=== PATIENT | female | born 1960 | race Caucasian/White ===

== ENCOUNTER 2023-09-16 10:51 | Emergency (ER) | payer MEDICARE, SELFPAY ==
[2023-09-16] VITALS (97 sets, daily range): BP systolic 80–151; BP diastolic 44–98; PULSE 99–130; RESP 18–39; TEMP 36.4–37.5; O2SAT 85–98; BMI 41.7
--- NOTE | 2023-09-16 10:55 | DI.RAD.S_ITS ---
PROCEDURE: XR CHEST 1V INDICATIONS: Shortness of breath TECHNIQUE: One view of the chest was acquired. COMPARISON: None. FINDINGS: There is rotation. Surgical changes and devices: None. Lungs and pleura: Bilateral pulmonary infiltrate sand lower lobe consolidation suspicious for pneumonia. Small right pleural effusion with right basilar atelectasis. No pneumothorax. Mediastinum: Mediastinal contours appear normal. Heart size is moderately enlarged. Bones and chest wall: No suspicious bony lesions. Overlying soft tissues appear unremarkable. IMPRESSION: 1. Suspect bilateral pneumonia. 2. Moderate cardiomegaly. Dictated by: Deshawn Rodriguez M.D. on 09/16/2023 at 11:32 Approved by: Deshawn Rodriguez M.D. on 09/16/2023 at 11:33
--- NOTE | 2023-09-16 11:14 | ED.GENADULT ---
HPI - General Adult <Mic Ray DO - Last Filed: 09/19/23 17:59> General Chief complaint: Shortness of Breath/Dyspnea Stated complaint: SOB/ sick T-7 Time Seen by Provider: 09/16/23 10:54 Source: patient and family Mode of arrival: Wheelchair History of Present Illness HPI narrative: Patient is a 63-year-old female. No diagnosed medical problems. Takes no medications. Does not have a primary care doctor who is here with family for evaluation of shortness of breath. Patient and family report that several weeks ago she developed a respiratory illness. Does not seem to have improved since then. Today patient's family stated that they saw her without socks and noticed that her toes were blue and that her feet were swollen. Patient does report shortness of breath. She denies chest pain. Does have a cough. No fevers. No abdominal pain. Has not tried anything for the symptoms prior to arrival. Related Data Allergies Allergy/AdvReac Type Severity Reaction Status Date / Time No Known Drug Allergies Allergy Verified 09/16/23 11:07 Review of Systems <DO Rachell Romero Last Filed: 09/19/23 17:59> Review of Systems ROS Unobtainable: All systems reviewed & are unremarkable except as noted in HPI and below Patient History <DO Racehll Romero Last Filed: 09/19/23 17:59> Social History Smoking Status: Former smoker Tobacco: How many years used: 30 Smoking Status: Never smoker alcohol intake frequency: other Substance Use Type: does not use Exam <DO Rachell Romero Last Filed: 09/19/23 17:59> Initial Vital Signs Initial Vital Signs: Vital Signs Temperature 97.5 F L 09/16/23 11:07 Pulse Rate 124 H 09/16/23 11:07 Respiratory Rate 18 09/16/23 11:07 Blood Pressure 129/79 09/16/23 11:07 Pulse Oximetry 95 09/16/23 11:07 Oxygen Delivery Method Room Air 09/16/23 11:07 Const General: cooperative and ill appearing [facility] Head: normal to inspection and normocephalic Resp Effort & Inspection: cough, no respiratory distress and tachypneic Auscultation: rhonchi and wheezes Cardio Rate: tachycardic Rhythm: regular rhythm GI Inspection: normal to inspection and non-distended Skin Other: Patient with multiple wounds on lower extremities. Is weeping. No erythema. Patient does have discolored bilateral toes. Somewhat cool to the touch. Neuro General: patient alert, patient awake and patient oriented x3 Extrem General: edema <Uriel Fowler MD - Last Filed: 09/17/23 07:12> Initial Vital Signs Initial Vital Signs: Vital Signs Temperature 97.5 F L 09/16/23 11:07 Pulse Rate 124 H 09/16/23 11:07 Respiratory Rate 18 09/16/23 11:07 Blood Pressure 129/79 09/16/23 11:07 Pulse Oximetry 95 09/16/23 11:07 Oxygen Delivery Method Room Air 09/16/23 11:07 Course <Mic Ray DO - Last Filed: 09/19/23 17:59> Orders Ordered: Discontinued Medications Aspirin (Aspirin 81 Mg Chew Tab) 324 mg PO NOW ONE Stop: 09/16/23 11:52 Last Admin: 09/16/23 12:10 Dose: 324 mg Documented By: SUNITHA Furosemide (Furosemide 40 Mg/4 Ml Vial) 40 mg IV NOW ONE Stop: 09/16/23 11:17 Last Admin: 09/16/23 11:24 Dose: 40 mg Documented By: JAMARI Furosemide (Furosemide 40 Mg/4 Ml Vial) 40 mg IV NOW ONE Stop: 09/16/23 13:43 Last Admin: 09/16/23 13:46 Dose: 40 mg Documented By: JAMARI Ceftriaxone Sodium 1,000 mg/ (Sodium Chloride) 100 mls @ 200 mls/hr IV NOW ONE Stop: 09/16/23 11:43 Last Infusion: 09/16/23 12:55 Dose: Infused Documented By: Admin: 09/16/23 12:10 Dose: 200 mls/hr Documented By: SUNITHA Azithromycin 500 mg/ Dextrose 250 mls @ 250 mls/hr IV NOW ONE Stop: 09/16/23 11:52 Last Infusion: 09/16/23 14:02 Dose: Infused Documented By: Admin: 09/16/23 12:56 Dose: 250 mls/hr Documented By: JAMARI Sodium Chloride (Normal Saline 0.9%) 1,000 mls @ 100 mls/hr IV CONT KENYA Last Infusion: 09/16/23 23:18 Dose: 0 mls/hr Documented By: Infusion: 09/16/23 23:14 Dose: 0 mls/hr Documented By: Admin: 09/16/23 14:48 Dose: 100 mls/hr Documented By: JAMARI Sodium Chloride (Normal Saline 0.9%) 500 mls @ 500 mls/hr IV BOLUS ONE Stop: 09/16/23 14:51 Last Infusion: 09/16/23 15:06 Dose: Infused Documented By: Admin: 09/16/23 14:02 Dose: 500 mls/hr Documented By: JAMARI NOREPINEPHRINE BITARTRATE/D5W (Levophed) 4 mg in 250 mls @ 38.782 mls/hr IV TITRATE KENYA; Protocol Last Admin: 09/16/23 23:17 Dose: Not Given Documented By: Vital Signs Vital signs: Vital Signs - 8 hr 09/16/23 13:00 09/16/23 13:00 09/16/23 13:15 Temperature Pulse Rate 123 H 119 H Respiratory Rate 30 H 31 H Blood Pressure 145/63 H Pulse Oximetry 92 94 Oxygen Delivery Method Oxygen Flow Rate 09/16/23 13:15 09/16/23 13:30 09/16/23 13:31 Temperature Pulse Rate 120 H 113 H Respiratory Rate 27 H 39 H Blood Pressure 122/56 L Pulse Oximetry 93 94 Oxygen Delivery Method Oxygen Flow Rate 09/16/23 13:31 09/16/23 13:45 09/16/23 13:45 Temperature Pulse Rate 111 H Respiratory Rate 34 H Blood Pressure 107/58 L 92/51 L Pulse Oximetry 94 Oxygen Delivery Method Nasal Cannula Oxygen Flow Rate 2 09/16/23 13:49 09/16/23 13:49 09/16/23 14:00 Temperature Pulse Rate 113 H 110 H Respiratory Rate 27 H 29 H Blood Pressure 104/59 L Pulse Oximetry 93 93 Oxygen Delivery Method Oxygen Flow Rate 09/16/23 14:00 09/16/23 14:07 09/16/23 14:15 Temperature 99.5 F Pulse Rate 114 H 111 H Respiratory Rate 27 H Blood Pressure 92/54 L Pulse Oximetry 95 Oxygen Delivery Method Oxygen Flow Rate 09/16/23 14:15 09/16/23 14:20 09/16/23 14:25 Temperature Pulse Rate 107 H 105 H Respiratory Rate 27 H 27 H Blood Pressure 90/55 L Pulse Oximetry 96 95 Oxygen Delivery Method Nasal Cannula Oxygen Flow Rate 2 09/16/23 14:30 09/16/23 14:30 09/16/23 14:32 Temperature Pulse Rate 111 H 107 H Respiratory Rate 26 H 28 H Blood Pressure 96/58 L Pulse Oximetry 95 94 Oxygen Delivery Method Oxygen Flow Rate 09/16/23 14:32 09/16/23 14:33 09/16/23 14:33 Temperature Pulse Rate 107 H Respiratory Rate 24 Blood Pressure 101/59 L 104/57 L Pulse Oximetry 94 Oxygen Delivery Method Oxygen Flow Rate 09/16/23 14:34 09/16/23 14:34 09/16/23 14:35 Temperature Pulse Rate 114 H 108 H Respiratory Rate 24 30 H Blood Pressure 99/56 L Pulse Oximetry 94 94 Oxygen Delivery Method Oxygen Flow Rate 09/16/23 14:40 09/16/23 14:40 09/16/23 14:45 Temperature Pulse Rate 102 H 112 H Respiratory Rate 26 H 28 H Blood Pressure 103/56 L Pulse Oximetry 96 95 Oxygen Delivery Method Oxygen Flow Rate 09/16/23 14:51 09/16/23 14:51 09/16/23 15:00 Temperature Pulse Rate 111 H 117 H Respiratory Rate 27 H 26 H Blood Pressure 108/61 Pulse Oximetry 95 95 Oxygen Delivery Method Oxygen Flow Rate 09/16/23 15:00 09/16/23 15:10 09/16/23 15:10 Temperature Pulse Rate 109 H Respiratory Rate 27 H Blood Pressure 109/62 110/59 L Pulse Oximetry 95 Oxygen Delivery Method Oxygen Flow Rate 09/16/23 15:15 09/16/23 15:20 09/16/23 15:20 Temperature Pulse Rate 115 H 122 H Respiratory Rate 31 H 29 H Blood Pressure 121/56 L Pulse Oximetry 97 96 Oxygen Delivery Method Oxygen Flow Rate 09/16/23 15:30 09/16/23 15:30 09/16/23 15:40 Temperature Pulse Rate 109 H 116 H Respiratory Rate 29 H 27 H Blood Pressure 110/61 Pulse Oximetry 96 96 Oxygen Delivery Method Oxygen Flow Rate 09/16/23 15:40 09/16/23 15:45 09/16/23 15:50 Temperature Pulse Rate 113 H 114 H Respiratory Rate 29 H 34 H Blood Pressure 110/56 L Pulse Oximetry 96 95 Oxygen Delivery Method Oxygen Flow Rate 09/16/23 15:50 09/16/23 16:00 09/16/23 16:00 Temperature Pulse Rate 116 H Respiratory Rate 24 Blood Pressure 122/85 106/57 L Pulse Oximetry 94 Oxygen Delivery Method Oxygen Flow Rate 09/16/23 16:10 09/16/23 16:10 09/16/23 16:15 Temperature Pulse Rate 116 H 107 H Respiratory Rate 29 H 31 H Blood Pressure 107/62 Pulse Oximetry 95 97 Oxygen Delivery Method Nasal Cannula Oxygen Flow Rate 2 09/16/23 16:20 09/16/23 16:20 09/16/23 16:30 Temperature Pulse Rate 115 H 99 H Respiratory Rate 24 25 H Blood Pressure 111/57 L Pulse Oximetry 97 95 Oxygen Delivery Method Oxygen Flow Rate 09/16/23 16:32 09/16/23 16:32 09/16/23 16:41 Temperature Pulse Rate 105 H 111 H Respiratory Rate 26 H 30 H Blood Pressure 108/58 L Pulse Oximetry 97 97 Oxygen Delivery Method Oxygen Flow Rate 09/16/23 16:41 09/16/23 16:45 09/16/23 16:50 Temperature Pulse Rate 105 H 116 H Respiratory Rate 30 H 24 Blood Pressure 108/72 Pulse Oximetry 96 96 Oxygen Delivery Method Oxygen Flow Rate 09/16/23 16:50 09/16/23 17:00 09/16/23 17:00 Temperature Pulse Rate 111 H Respiratory Rate 26 H Blood Pressure 116/59 L 104/55 L Pulse Oximetry 96 Oxygen Delivery Method Oxygen Flow Rate 09/16/23 17:10 09/16/23 17:10 09/16/23 17:15 Temperature Pulse Rate 113 H 117 H Respiratory Rate 27 H 24 Blood Pressure 114/54 L Pulse Oximetry 96 95 Oxygen Delivery Method Nasal Cannula Oxygen Flow Rate 7 09/16/23 17:20 09/16/23 17:20 09/16/23 17:30 Temperature Pulse Rate 105 H 119 H Respiratory Rate 26 H 25 H Blood Pressure 116/56 L Pulse Oximetry 95 96 Oxygen Delivery Method Nasal Cannula Oxygen Flow Rate 2 09/16/23 17:30 09/16/23 17:40 09/16/23 17:40 Temperature Pulse Rate 120 H Respiratory Rate 33 H Blood Pressure 113/56 L 121/57 L Pulse Oximetry 96 Oxygen Delivery Method Oxygen Flow Rate 09/16/23 17:45 02/04/24 17:51 09/16/23 17:51 Temperature Pulse Rate 110 H 122 H Respiratory Rate 29 H 29 H Blood Pressure 115/98 H Pulse Oximetry 95 93 Oxygen Delivery Method Oxygen Flow Rate 09/16/23 18:00 09/16/23 18:10 09/16/23 18:10 Temperature 98.5 F Pulse Rate 118 H 127 H Respiratory Rate 27 H 28 H Blood Pressure 128/63 Pulse Oximetry 94 94 Oxygen Delivery Method Nasal Cannula Oxygen Flow Rate 3 09/16/23 18:15 09/16/23 18:21 09/16/23 18:21 Temperature Pulse Rate 118 H 118 H Respiratory Rate 25 H 28 H Blood Pressure 113/55 L Pulse Oximetry 95 95 Oxygen Delivery Method Oxygen Flow Rate 09/16/23 18:30 09/16/23 18:30 09/16/23 18:40 Temperature Pulse Rate 125 H 130 H Respiratory Rate 25 H 29 H Blood Pressure 124/58 L Pulse Oximetry 89 L 88 L Oxygen Delivery Method Oxygen Flow Rate 09/16/23 18:40 09/16/23 18:45 09/16/23 18:50 Temperature Pulse Rate 124 H 127 H Respiratory Rate 25 H 23 Blood Pressure 112/59 L Pulse Oximetry 88 L 91 Oxygen Delivery Method Oxygen Flow Rate 09/16/23 18:50 09/16/23 19:00 09/16/23 19:00 Temperature Pulse Rate 121 H Respiratory Rate 23 Blood Pressure 119/67 125/55 L Pulse Oximetry 95 Oxygen Delivery Method Oxygen Flow Rate 09/16/23 19:10 09/16/23 19:20 09/16/23 19:30 Temperature Pulse Rate 125 H 121 H 119 H Respiratory Rate 26 H 30 H 29 H Blood Pressure Pulse Oximetry 96 97 97 Oxygen Delivery Method Nasal Cannula Oxygen Flow Rate 3 09/16/23 19:40 09/16/23 19:50 09/16/23 20:00 Temperature Pulse Rate 120 H 125 H 126 H Respiratory Rate 26 H 29 H 31 H Blood Pressure Pulse Oximetry 97 97 97 Oxygen Delivery Method Oxygen Flow Rate 09/16/23 20:10 09/16/23 20:15 09/16/23 20:15 Temperature Pulse Rate 117 H 117 H Respiratory Rate 28 H 28 H Blood Pressure 107/48 L Pulse Oximetry 95 96 Oxygen Delivery Method Oxygen Flow Rate 09/16/23 20:20 09/16/23 20:20 09/16/23 20:30 Temperature Pulse Rate 120 H Respiratory Rate 32 H Blood Pressure 99/55 L 100/67 Pulse Oximetry 98 Oxygen Delivery Method Oxygen Flow Rate 09/16/23 20:30 09/16/23 20:40 09/16/23 20:40 Temperature Pulse Rate 121 H 120 H Respiratory Rate 29 H 27 H Blood Pressure 100/65 Pulse Oximetry 97 93 Oxygen Delivery Method Oxygen Flow Rate 09/16/23 20:50 Temperature Pulse Rate 124 H Respiratory Rate 29 H Blood Pressure 90/57 L Pulse Oximetry 93 Oxygen Delivery Method Nasal Cannula Oxygen Flow Rate 3 <Uriel Fowler MD - Last Filed: 09/17/23 07:12> Orders Ordered: Discontinued Medications Aspirin (Aspirin 81 Mg Chew Tab) 324 mg PO NOW ONE Stop: 09/16/23 11:52 Last Admin: 09/16/23 12:10 Dose: 324 mg Documented By: SUNITHA Furosemide (Furosemide 40 Mg/4 Ml Vial) 40 mg IV NOW ONE Stop: 09/16/23 11:17 Last Admin: 09/16/23 11:24 Dose: 40 mg Documented By: JAMARI Furosemide (Furosemide 40 Mg/4 Ml Vial) 40 mg IV NOW ONE Stop: 09/16/23 13:43 Last Admin: 09/16/23 13:46 Dose: 40 mg Documented By: JAMARI Ceftriaxone Sodium 1,000 mg/ (Sodium Chloride) 100 mls @ 200 mls/hr IV NOW ONE Stop: 09/16/23 11:43 Last Infusion: 09/16/23 12:55 Dose: Infused Documented By: Admin: 09/16/23 12:10 Dose: 200 mls/hr Documented By: SUNITHA Azithromycin 500 mg/ Dextrose 250 mls @ 250 mls/hr IV NOW ONE Stop: 09/16/23 11:52 Last Infusion: 09/16/23 14:02 Dose: Infused Documented By: Admin: 09/16/23 12:56 Dose: 250 mls/hr Documented By: JAMARI Sodium Chloride (Normal Saline 0.9%) 1,000 mls @ 100 mls/hr IV CONT KENYA Last Infusion: 09/16/23 23:18 Dose: 0 mls/hr Documented By: Infusion: 09/16/23 23:14 Dose: 0 mls/hr Documented By: Admin: 09/16/23 14:48 Dose: 100 mls/hr Documented By: JAMARI Sodium Chloride (Normal Saline 0.9%) 500 mls @ 500 mls/hr IV BOLUS ONE Stop: 09/16/23 14:51 Last Infusion: 09/16/23 15:06 Dose: Infused Documented By: Admin: 09/16/23 14:02 Dose: 500 mls/hr Documented By: JAMARI NOREPINEPHRINE BITARTRATE/D5W (Levophed) 4 mg in 250 mls @ 38.782 mls/hr IV TITRATE KENYA; Protocol Last Admin: 09/16/23 23:17 Dose: Not Given Documented By: Reevaluation(s) Reevaluation #1: Care assumed at 6:00 p.m. shift change. At 9:00 p.m., nurses advised me that the patient was hypotensive. I reviewed her chest x-ray, EKG and laboratory data including an elevated proBNP and elevated troponins which are stable. She had transient hypotension, blood pressure is now recovering. I have ordered norepinephrine, we will not start that at this point as her blood pressure has recovered although we will keep it available for mean arterial pressure less than 65 patient was sleeping she arouses to voice. She appears to be making urine well she is oxygenating well. Has received antibiotics for possible pneumonia, we are waiting for a bed at a hospital with cardiology capabilities. Vital Signs Vital signs: Vital Signs - 8 hr 09/16/23 13:00 09/16/23 13:00 09/16/23 13:15 Temperature Pulse Rate 123 H 119 H Respiratory Rate 30 H 31 H Blood Pressure 145/63 H Pulse Oximetry 92 94 Oxygen Delivery Method Oxygen Flow Rate 09/16/23 13:15 09/16/23 13:30 09/16/23 13:31 Temperature Pulse Rate 120 H 113 H Respiratory Rate 27 H 39 H Blood Pressure 122/56 L Pulse Oximetry 93 94 Oxygen Delivery Method Oxygen Flow Rate 09/16/23 13:31 09/16/23 13:45 09/16/23 13:45 Temperature Pulse Rate 111 H Respiratory Rate 34 H Blood Pressure 107/58 L 92/51 L Pulse Oximetry 94 Oxygen Delivery Method Nasal Cannula Oxygen Flow Rate 2 09/16/23 13:49 09/16/23 13:49 09/16/23 14:00 Temperature Pulse Rate 113 H 110 H Respiratory Rate 27 H 29 H Blood Pressure 104/59 L Pulse Oximetry 93 93 Oxygen Delivery Method Oxygen Flow Rate 09/16/23 14:00 09/16/23 14:07 09/16/23 14:15 Temperature 99.5 F Pulse Rate 114 H 111 H Respiratory Rate 27 H Blood Pressure 92/54 L Pulse Oximetry 95 Oxygen Delivery Method Oxygen Flow Rate 09/16/23 14:15 09/16/23 14:20 09/16/23 14:25 Temperature Pulse Rate 107 H 105 H Respiratory Rate 27 H 27 H Blood Pressure 90/55 L Pulse Oximetry 96 95 Oxygen Delivery Method Nasal Cannula Oxygen Flow Rate 2 09/16/23 14:30 09/16/23 14:30 09/16/23 14:32 Temperature Pulse Rate 111 H 107 H Respiratory Rate 26 H 28 H Blood Pressure 96/58 L Pulse Oximetry 95 94 Oxygen Delivery Method Oxygen Flow Rate 09/16/23 14:32 09/16/23 14:33 09/16/23 14:33 Temperature Pulse Rate 107 H Respiratory Rate 24 Blood Pressure 101/59 L 104/57 L Pulse Oximetry 94 Oxygen Delivery Method Oxygen Flow Rate 09/16/23 14:34 09/16/23 14:34 09/16/23 14:35 Temperature Pulse Rate 114 H 108 H Respiratory Rate 24 30 H Blood Pressure 99/56 L Pulse Oximetry 94 94 Oxygen Delivery Method Oxygen Flow Rate 09/16/23 14:40 09/16/23 14:40 09/16/23 14:45 Temperature Pulse Rate 102 H 112 H Respiratory Rate 26 H 28 H Blood Pressure 103/56 L Pulse Oximetry 96 95 Oxygen Delivery Method Oxygen Flow Rate 09/16/23 14:51 09/16/23 14:51 09/16/23 15:00 Temperature Pulse Rate 111 H 117 H Respiratory Rate 27 H 26 H Blood Pressure 108/61 Pulse Oximetry 95 95 Oxygen Delivery Method Oxygen Flow Rate 09/16/23 15:00 09/16/23 15:10 09/16/23 15:10 Temperature Pulse Rate 109 H Respiratory Rate 27 H Blood Pressure 109/62 110/59 L Pulse Oximetry 95 Oxygen Delivery Method Oxygen Flow Rate 09/16/23 15:15 09/16/23 15:20 09/16/23 15:20 Temperature Pulse Rate 115 H 122 H Respiratory Rate 31 H 29 H Blood Pressure 121/56 L Pulse Oximetry 97 96 Oxygen Delivery Method Oxygen Flow Rate 09/16/23 15:30 09/16/23 15:30 09/16/23 15:40 Temperature Pulse Rate 109 H 116 H Respiratory Rate 29 H 27 H Blood Pressure 110/61 Pulse Oximetry 96 96 Oxygen Delivery Method Oxygen Flow Rate 09/16/23 15:40 09/16/23 15:45 09/16/23 15:50 Temperature Pulse Rate 113 H 114 H Respiratory Rate 29 H 34 H Blood Pressure 110/56 L Pulse Oximetry 96 95 Oxygen Delivery Method Oxygen Flow Rate 09/16/23 15:50 09/16/23 16:00 09/16/23 16:00 Temperature Pulse Rate 116 H Respiratory Rate 24 Blood Pressure 122/85 106/57 L Pulse Oximetry 94 Oxygen Delivery Method Oxygen Flow Rate 09/16/23 16:10 09/16/23 16:10 09/16/23 16:15 Temperature Pulse Rate 116 H 107 H Respiratory Rate 29 H 31 H Blood Pressure 107/62 Pulse Oximetry 95 97 Oxygen Delivery Method Nasal Cannula Oxygen Flow Rate 2 09/16/23 16:20 09/16/23 16:20 09/16/23 16:30 Temperature Pulse Rate 115 H 99 H Respiratory Rate 24 25 H Blood Pressure 111/57 L Pulse Oximetry 97 95 Oxygen Delivery Method Oxygen Flow Rate 09/16/23 16:32 09/16/23 16:32 09/16/23 16:41 Temperature Pulse Rate 105 H 111 H Respiratory Rate 26 H 30 H Blood Pressure 108/58 L Pulse Oximetry 97 97 Oxygen Delivery Method Oxygen Flow Rate 09/16/23 16:41 09/16/23 16:45 09/16/23 16:50 Temperature Pulse Rate 105 H 116 H Respiratory Rate 30 H 24 Blood Pressure 108/72 Pulse Oximetry 96 96 Oxygen Delivery Method Oxygen Flow Rate 09/16/23 16:50 09/16/23 17:00 09/16/23 17:00 Temperature Pulse Rate 111 H Respiratory Rate 26 H Blood Pressure 116/59 L 104/55 L Pulse Oximetry 96 Oxygen Delivery Method Oxygen Flow Rate 09/16/23 17:10 09/16/23 17:10 09/16/23 17:15 Temperature Pulse Rate 113 H 117 H Respiratory Rate 27 H 24 Blood Pressure 114/54 L Pulse Oximetry 96 95 Oxygen Delivery Method Nasal Cannula Oxygen Flow Rate 7 09/16/23 17:20 09/16/23 17:20 02/04/24 17:30 Temperature Pulse Rate 105 H 119 H Respiratory Rate 26 H 25 H Blood Pressure 116/56 L Pulse Oximetry 95 96 Oxygen Delivery Method Nasal Cannula Oxygen Flow Rate 2 09/16/23 17:30 09/16/23 17:40 09/16/23 17:40 Temperature Pulse Rate 120 H Respiratory Rate 33 H Blood Pressure 113/56 L 121/57 L Pulse Oximetry 96 Oxygen Delivery Method Oxygen Flow Rate 09/16/23 17:45 09/16/23 17:51 09/16/23 17:51 Temperature Pulse Rate 110 H 122 H Respiratory Rate 29 H 29 H Blood Pressure 115/98 H Pulse Oximetry 95 93 Oxygen Delivery Method Oxygen Flow Rate 09/16/23 18:00 09/16/23 18:10 09/16/23 18:10 Temperature 98.5 F Pulse Rate 118 H 127 H Respiratory Rate 27 H 28 H Blood Pressure 128/63 Pulse Oximetry 94 94 Oxygen Delivery Method Nasal Cannula Oxygen Flow Rate 3 09/16/23 18:15 09/16/23 18:21 09/16/23 18:21 Temperature Pulse Rate 118 H 118 H Respiratory Rate 25 H 28 H Blood Pressure 113/55 L Pulse Oximetry 95 95 Oxygen Delivery Method Oxygen Flow Rate 09/16/23 18:30 09/16/23 18:30 09/16/23 18:40 Temperature Pulse Rate 125 H 130 H Respiratory Rate 25 H 29 H Blood Pressure 124/58 L Pulse Oximetry 89 L 88 L Oxygen Delivery Method Oxygen Flow Rate 09/16/23 18:40 09/16/23 18:45 09/16/23 18:50 Temperature Pulse Rate 124 H 127 H Respiratory Rate 25 H 23 Blood Pressure 112/59 L Pulse Oximetry 88 L 91 Oxygen Delivery Method Oxygen Flow Rate 09/16/23 18:50 09/16/23 19:00 09/16/23 19:00 Temperature Pulse Rate 121 H Respiratory Rate 23 Blood Pressure 119/67 125/55 L Pulse Oximetry 95 Oxygen Delivery Method Oxygen Flow Rate 09/16/23 19:10 09/16/23 19:20 09/16/23 19:30 Temperature Pulse Rate 125 H 121 H 119 H Respiratory Rate 26 H 30 H 29 H Blood Pressure Pulse Oximetry 96 97 97 Oxygen Delivery Method Nasal Cannula Oxygen Flow Rate 3 09/16/23 19:40 09/16/23 19:50 09/16/23 20:00 Temperature Pulse Rate 120 H 125 H 126 H Respiratory Rate 26 H 29 H 31 H Blood Pressure Pulse Oximetry 97 97 97 Oxygen Delivery Method Oxygen Flow Rate 09/16/23 20:10 09/16/23 20:15 09/16/23 20:15 Temperature Pulse Rate 117 H 117 H Respiratory Rate 28 H 28 H Blood Pressure 107/48 L Pulse Oximetry 95 96 Oxygen Delivery Method Oxygen Flow Rate 09/16/23 20:20 09/16/23 20:20 09/16/23 20:30 Temperature Pulse Rate 120 H Respiratory Rate 32 H Blood Pressure 99/55 L 100/67 Pulse Oximetry 98 Oxygen Delivery Method Oxygen Flow Rate 09/16/23 20:30 09/16/23 20:40 09/16/23 20:40 Temperature Pulse Rate 121 H 120 H Respiratory Rate 29 H 27 H Blood Pressure 100/65 Pulse Oximetry 97 93 Oxygen Delivery Method Oxygen Flow Rate 09/16/23 20:50 Temperature Pulse Rate 124 H Respiratory Rate 29 H Blood Pressure 90/57 L Pulse Oximetry 93 Oxygen Delivery Method Nasal Cannula Oxygen Flow Rate 3 Medical Decision Making <Mic Ray DO - Last Filed: 09/19/23 17:59> Lab Data Lab results reviewed: Yes I reviewed the patient's lab results. 09/16/23 11:10 09/16/23 11:10 Labs: Lab Results 09/16/23 09/16/23 09/16/23 Range/Units 11:10 12:15 13:18 WBC 12.1 H (4.5-11.0) X10^3/uL RBC 5.21 H (4.0-5.2) X10^6/uL Hgb 14.2 (12.0-16.0) g/dL Hct 45.3 (36-46) % MCV 87.1 (80-100) fL MCH 27.3 (26-34) PG MCHC 31.3 (30-36) % RDW 16.6 H (11.6-14.8) % Plt Count 201 (150-400) X10^3/uL Neut % (Auto) 85.6 H (50-75) % Lymph % (Auto) 8.1 L (25-40) % [place] % (Auto) 5.9 (3-14) % Eos % (Auto) 0.0 L (2-4) % Baso % (Auto) 0.4 (0-2) % Neut # (Auto) 29394 H (4807-3041) /uL Lymph # (Auto) 1000 L (0055-4404) /uL [place] # (Auto) 700 (0-900) /uL Eos # (Auto) 0 (0-450) /uL Baso # (Auto) 100 (0-100) /uL Sodium 134 L (137-145) mmol/L Potassium 4.7 (3.4-5.1) mmol/L Chloride 98 (98-107) mmol/L Carbon Dioxide 22 (22-32) mmol/L BUN 34 H (7-17) mg/dL Creatinine 0.86 (0.52-1.04) mg/dL Estimated GFR > 60 (>60) mL/min BUN/Creatinine Ratio 39.5 H (6-22) Glucose 85 (80-110) mg/dL Lactate 6.8 H* 3.1 H (0.7-2.1) mmol/L Calcium 8.8 (8.4-10.2) mg/dL Total Bilirubin 2.5 H (0.2-1.3) mg/dL AST 60 H (14-36) IU/L ALT 46 H (<35) IU/L Alkaline Phosphatase 88 (38-126) U/L Total Creatine Kinase 335 H 256 H (30-135) U/L Troponin I 0.218 H* 0.202 H* (0.01-0.034) ng/mL NT-Pro-B Natriuret Pep 87461 H (<125) pg/mL Total Protein 7.5 (6.3-8.2) g/dL Albumin 3.3 L (3.5-5.0) g/dL Globulin 4.2 H (1.7-4.1) g/dL Albumin/Globulin Ratio 0.8 L (1.0-2.8) Lipase 74 (23-300) U/L Procalcitonin 0.25 (<0.5) ng/mL Urine Color Yellow Urine Appearance Clear Urine pH 5.5 (4.5-8.0) Ur Specific [place] >=1.030 H (1.000-1.035) Urine Protein 1+ H (Negative) Urine Glucose (UA) Negative (Negative) g/dL Urine Ketones Negative (NEGATIVE) Urine Occult Blood 1+ H (Negative) Urine Nitrate Negative (Negative) Urine Bilirubin 1+ H (NEGATIVE) Ur Bilirubin Confirm Not Reportable Urine Urobilinogen 4.0 H (0.2) E.U./dL Ur Leukocyte Esterase Negative (NEGATIVE) Urine RBC 1-5/hpf (0-5/HPF) Urine WBC 5-10/hpf H (0-5/HPF) Ur Squamous Epith Cells 10-30 /hpf H (0-5/HPF) Amorphous Sediment 2+ Urine Bacteria Moderate (10-30) H (None) Hyaline Casts 1-5/lpf (None) Granular Casts 1-5/lpf (None) Urine Mucus 1+ H (Negative) Ur Culture Indicated? Specimen cultured Vol Urine Centrifuged 10ml (spun) A.calcoaceticus-baumannii cmplx PCR (Not Detect) Chlamy pneumoniae PCR Not detected (Not Detect) Adenovirus (PCR) Not detected (Not Detect) Bacteroides fragilis (Not Detect) B.parapertussis DNA PCR Not detected (Not Detecte) Deonna albicans (PCR) (Not Detect) Deonna auris (PCR) (Not Detect) C. glabrata (PCR) (Not Detect) C. krusei (PCR) (Not Detect) C. parapsilosis (PCR) (Not Detect) C. tropicalis (PCR) (Not Detect) Coronavirus OC43 (PCR) Not detected (Not Detect) Coronavirus HKU1 (PCR) Not detected (Not Detect) Coronavirus 229E (PCR) Not detected (Not Detect) SARS-CoV-2 (PCR) Not detected (Not Detecte) Coronavirus NL63 (PCR) Not detected (Not Detect) C. neoform/gattii (PCR) (Not Detect) Enterobacterales (PCR) (Not Detect) E. cloacae complex PCR (Not Detect) Enterococc faecalis PCR (Not Detect) Enterococc faecium PCR (Not Detect) E. coli (PCR) (Not Detect) H. influenzae (PCR) (Not Detect) Human Metapneumovir PCR Not detected (Not Detect) Influenza Type A (PCR) Not detected (Not Detect) Influenza Type B (PCR) Not detected (Not Detect) Klebsiella aerogenes (PCR) (Not Detect) Klebsiella oxytoca PCR (Not Detect) Klebsiella pneumoniae (Not Detect) List. monocytogenes PCR (Not Detect) M. pneumoniae (PCR) Not detected (Not Detect) N. meningitidis (PCR) (Not Detect) Parainfluenza 1 (PCR) Not detected (Not Detect) Parainfluenza 2 (PCR) Not detected (Not Detect) Parainfluenza 3 (PCR) Not detected (Not Detect) Parainfluenza 4 (PCR) Not detected (Not Detect) Proteus species (PCR) (Not Detect) RSV (PCR) Detected H (Not Detect) Entero/Rhino (PCR) Not detected (Not Detect) Salmonella spp. (PCR) (Not Detect) Serratia marcescens PCR (Not Detect) Staphylococcus sp PCR (Not Detect) Staph aureus (PCR) (Not Detect) mecA/C & MREJ Resist Gene (Not Detect) mecA/C-Methicil Resis Gene (Not Detect) mcr-1 Colistin Res Gene PCR (Not Detect) Staph epidermidis (PCR) (Not Detect) Staph lugdunensis PCR (Not Detect) S. maltophilia (PCR) (Not Detect) Streptococcus sp PCR (Not Detect) Group A Strep (PCR) (Not Detect) Strep agalactiae (PCR) (Not Detect) Strep pneumoniae (PCR) (Not Detect) P. aeruginosa (PCR) (Not Detect) [place]/B-Vanco Res Genes (Not Detect) blaIMP Car res Gene PCR (Not Detect) KPC-Carbap Res Gene PCR (Not Detect) blaNDM Car Res Gene PCR (Not Detect) OXA-48 Carbapenem Resis Gene (PCR) (Not Detect) blaVIM Car Res Gene PCR (Not Detect) CTX-M Gene Resistance (PCR) (Not Detect) 09/16/23 09/16/23 09/17/23 Range/Units 16:08 19:12 06:54 WBC (4.5-11.0) X10^3/uL RBC (4.0-5.2) X10^6/uL Hgb (12.0-16.0) g/dL Hct (36-46) % MCV (80-100) fL MCH (26-34) PG MCHC (30-36) % RDW (11.6-14.8) % Plt Count (150-400) X10^3/uL Neut % (Auto) (50-75) % Lymph % (Auto) (25-40) % [place] % (Auto) (3-14) % Eos % (Auto) (2-4) % Baso % (Auto) (0-2) % Neut # (Auto) (6315-2626) /uL Lymph # (Auto) (0486-9879) /uL Bollinger # (Auto) (0-900) /uL Eos # (Auto) (0-450) /uL Baso # (Auto) (0-100) /uL Sodium (137-145) mmol/L Potassium (3.4-5.1) mmol/L Chloride (98-107) mmol/L Carbon Dioxide (22-32) mmol/L BUN (7-17) mg/dL Creatinine (0.52-1.04) mg/dL Estimated GFR (>60) mL/min BUN/Creatinine Ratio (6-22) Glucose (80-110) mg/dL Lactate 1.9 (0.7-2.1) mmol/L Calcium (8.4-10.2) mg/dL Total Bilirubin (0.2-1.3) mg/dL AST (14-36) IU/L ALT (<35) IU/L Alkaline Phosphatase (38-126) U/L Total Creatine Kinase 180 H (30-135) U/L Troponin I 0.211 H* (0.01-0.034) ng/mL NT-Pro-B Natriuret Pep (<125) pg/mL Total Protein (6.3-8.2) g/dL Albumin (3.5-5.0) g/dL Globulin (1.7-4.1) g/dL Albumin/Globulin Ratio (1.0-2.8) Lipase (23-300) U/L Procalcitonin (<0.5) ng/mL Urine Color Urine Appearance Urine pH (4.5-8.0) Ur Specific [place] (1.000-1.035) Urine Protein (Negative) Urine Glucose (UA) (Negative) g/dL Urine Ketones (NEGATIVE) Urine Occult Blood (Negative) Urine Nitrate (Negative) Urine Bilirubin (NEGATIVE) Ur Bilirubin Confirm Urine Urobilinogen (0.2) E.U./dL Ur Leukocyte Esterase (NEGATIVE) Urine RBC (0-5/HPF) Urine WBC (0-5/HPF) Ur Squamous Epith Cells (0-5/HPF) Amorphous Sediment Urine Bacteria (None) Hyaline Casts (None) Granular Casts (None) Urine Mucus (Negative) Ur Culture Indicated? Vol Urine Centrifuged A.calcoaceticus-baumannii cmplx PCR Not detected (Not Detect) Chlamy pneumoniae PCR (Not Detect) Adenovirus (PCR) (Not Detect) Bacteroides fragilis Not detected (Not Detect) B.parapertussis DNA PCR (Not Detecte) Deonna albicans (PCR) Not detected (Not Detect) Deonna auris (PCR) Not detected (Not Detect) C. glabrata (PCR) Not detected (Not Detect) C. krusei (PCR) Not detected (Not Detect) C. parapsilosis (PCR) Not detected (Not Detect) C. tropicalis (PCR) Not detected (Not Detect) Coronavirus OC43 (PCR) (Not Detect) Coronavirus HKU1 (PCR) (Not Detect) Coronavirus 229E (PCR) (Not Detect) SARS-CoV-2 (PCR) (Not Detecte) Coronavirus NL63 (PCR) (Not Detect) C. neoform/gattii (PCR) Not detected (Not Detect) Enterobacterales (PCR) Not detected (Not Detect) E. cloacae complex PCR Not detected (Not Detect) Enterococc faecalis PCR Not detected (Not Detect) Enterococc faecium PCR Not detected (Not Detect) E. coli (PCR) Not detected (Not Detect) H. influenzae (PCR) Not detected (Not Detect) Human Metapneumovir PCR (Not Detect) Influenza Type A (PCR) (Not Detect) Influenza Type B (PCR) (Not Detect) Klebsiella aerogenes (PCR) Not detected (Not Detect) Klebsiella oxytoca PCR Not detected (Not Detect) Klebsiella pneumoniae Not detected (Not Detect) List. monocytogenes PCR Not detected (Not Detect) M. pneumoniae (PCR) (Not Detect) N. meningitidis (PCR) Not detected (Not Detect) Parainfluenza 1 (PCR) (Not Detect) Parainfluenza 2 (PCR) (Not Detect) Parainfluenza 3 (PCR) (Not Detect) Parainfluenza 4 (PCR) (Not Detect) Proteus species (PCR) Not detected (Not Detect) RSV (PCR) (Not Detect) Entero/Rhino (PCR) (Not Detect) Salmonella spp. (PCR) Not detected (Not Detect) Serratia marcescens PCR Not detected (Not Detect) Staphylococcus sp PCR Detected (Not Detect) Staph aureus (PCR) Detected (Not Detect) mecA/C & MREJ Resist Gene Not detected (Not Detect) mecA/C-Methicil Resis Gene Not applicable (Not Detect) mcr-1 Colistin Res Gene PCR Not applicable (Not Detect) Staph epidermidis (PCR) Not detected (Not Detect) Staph lugdunensis PCR Not detected (Not Detect) S. maltophilia (PCR) Not detected (Not Detect) Streptococcus sp PCR Not detected (Not Detect) Group A Strep (PCR) Not detected (Not Detect) Strep agalactiae (PCR) Not detected (Not Detect) Strep pneumoniae (PCR) Not detected (Not Detect) P. aeruginosa (PCR) Not detected (Not Detect) [place]/B-Vanco Res Genes Not applicable (Not Detect) blaIMP Car res Gene PCR Not applicable (Not Detect) KPC-Carbap Res Gene PCR Not applicable (Not Detect) blaNDM Car Res Gene PCR Not applicable (Not Detect) OXA-48 Carbapenem Resis Gene (PCR) Not applicable (Not Detect) blaVIM Car Res Gene PCR Not applicable (Not Detect) CTX-M Gene Resistance (PCR) Not applicable (Not Detect) Imaging Data Chest x-ray: Radiologist's Impression: PROCEDURE: XR CHEST 1V INDICATIONS: Shortness of breath TECHNIQUE: One view of the chest was acquired. COMPARISON: None. FINDINGS: There is rotation. Surgical changes and devices: None. Lungs and pleura: Bilateral pulmonary infiltrate sand lower lobe consolidation suspicious for pneumonia. Small right pleural effusion with right basilar atelectasis. No pneumothorax. Mediastinum: Mediastinal contours appear normal. Heart size is moderately enlarged. Bones and chest wall: No suspicious bony lesions. Overlying soft tissues appear unremarkable. IMPRESSION: 1. Suspect bilateral pneumonia. 2. Moderate cardiomegaly. ECG Data Attestation: I personally reviewed and interpreted this ECG as follows: Interpretation: Sinus rhythm Ventricular rate 112 Normal QRS Occasional PVC Nonspecific ST T wave changes MDM Narrative Medical decision making narrative: Patient arrives without any diagnosed medical problems or taking any medications most likely because she does not see a primary provider. Has had approximately 2 weeks of progressively worsening problems breathing. He was when her family saw her feet today which were discolored and the amount of secretions that she was having and the shortness of breath was what prompted them to bring her in. Has sinus tachycardia with frequent PVCs on her EKG. Initially lactate was elevated but this improved with treatment here in the ER. Patient clinically is fluid overloaded. Was given Lasix. She diuresed a small amount with an initial 40 mg but then had an episode of hypotension. She responded to a small bolus of fluids. I suspect that she is intravascularly dry however is having 3rd spacing. She was given a 2nd dose of Lasix. Has been able to maintain her blood pressure since then. Has remained tachycardic. Has required oxygen by 2 L nasal cannula to keep saturations greater than 90%. BNP elevated. Troponin elevated but it is unchanged with a 2 hour repeat. She was also RSV positive. Chest x-ray shows pneumonia. Given the circumstances of her presentation she was given antibiotics for this however unsure whether not this is bacterial versus viral. I discussed the case with Dr. Thomason hospitalist on-call who did a bedside echocardiogram who states that her estimated ejection fraction is quite low. Unable to obtain a formal echocardiogram. Given her nonischemic EKG and no chest pain will hold on heparin for now. I suspect that the elevated troponin is secondary to her CHF. Dr. Thomason consulted Dr. Perez client program manager on-call who recommended transfer to facility that has Cardiology capability. Multiple facilities for contacted without bed availability. I did discuss the case with client program manager on-call [facility] who accepted the patient for transfer however there was no bed availability. Care turned over to Dr. Fowler to continue to observe and follow-up until disposition can be met. <Uriel Fowler MD - Last Filed: 09/17/23 07:12> Lab Data Labs: Lab Results 09/16/23 09/16/23 09/16/23 Range/Units 11:10 12:15 13:18 WBC 12.1 H (4.5-11.0) X10^3/uL RBC 5.21 H (4.0-5.2) X10^6/uL Hgb 14.2 (12.0-16.0) g/dL Hct 45.3 (36-46) % MCV 87.1 (80-100) fL MCH 27.3 (26-34) PG MCHC 31.3 (30-36) % RDW 16.6 H (11.6-14.8) % Plt Count 201 (150-400) X10^3/uL Neut % (Auto) 85.6 H (50-75) % Lymph % (Auto) 8.1 L (25-40) % [place]linger % (Auto) 5.9 (3-14) % Eos % (Auto) 0.0 L (2-4) % Baso % (Auto) 0.4 (0-2) % Neut # (Auto) 54152 H (9679-8652) /uL Lymph # (Auto) 1000 L (9855-9532) /uL [place]linger # (Auto) 700 (0-900) /uL Eos # (Auto) 0 (0-450) /uL Baso # (Auto) 100 (0-100) /uL Sodium 134 L (137-145) mmol/L Potassium 4.7 (3.4-5.1) mmol/L Chloride 98 (98-107) mmol/L Carbon Dioxide 22 (22-32) mmol/L BUN 34 H (7-17) mg/dL Creatinine 0.86 (0.52-1.04) mg/dL Estimated GFR > 60 (>60) mL/min BUN/Creatinine Ratio 39.5 H (6-22) Glucose 85 (80-110) mg/dL Lactate 6.8 H* 3.1 H (0.7-2.1) mmol/L Calcium 8.8 (8.4-10.2) mg/dL Total Bilirubin 2.5 H (0.2-1.3) mg/dL AST 60 H (14-36) IU/L ALT 46 H (<35) IU/L Alkaline Phosphatase 88 (38-126) U/L Total Creatine Kinase 335 H 256 H (30-135) U/L Troponin I 0.218 H* 0.202 H* (0.01-0.034) ng/mL NT-Pro-B Natriuret Pep 54234 H (<125) pg/mL Total Protein 7.5 (6.3-8.2) g/dL Albumin 3.3 L (3.5-5.0) g/dL Globulin 4.2 H (1.7-4.1) g/dL Albumin/Globulin Ratio 0.8 L (1.0-2.8) Lipase 74 (23-300) U/L Procalcitonin 0.25 (<0.5) ng/mL Urine Color Yellow Urine Appearance Clear Urine pH 5.5 (4.5-8.0) Ur Specific [place] >=1.030 H (1.000-1.035) Urine Protein 1+ H (Negative) Urine Glucose (UA) Negative (Negative) g/dL Urine Ketones Negative (NEGATIVE) Urine Occult Blood 1+ H (Negative) Urine Nitrate Negative (Negative) Urine Bilirubin 1+ H (NEGATIVE) Ur Bilirubin Confirm Not Reportable Urine Urobilinogen 4.0 H (0.2) E.U./dL Ur Leukocyte Esterase Negative (NEGATIVE) Urine RBC 1-5/hpf (0-5/HPF) Urine WBC 5-10/hpf H (0-5/HPF) Ur Squamous Epith Cells 10-30 /hpf H (0-5/HPF) Amorphous Sediment 2+ Urine Bacteria Moderate (10-30) H (None) Hyaline Casts 1-5/lpf (None) Granular Casts 1-5/lpf (None) Urine Mucus 1+ H (Negative) Ur Culture Indicated? Specimen cultured Vol Urine Centrifuged 10ml (spun) A.calcoaceticus-baumannii cmplx PCR (Not Detect) Chlamy pneumoniae PCR Not detected (Not Detect) Adenovirus (PCR) Not detected (Not Detect) Bacteroides fragilis (Not Detect) B.parapertussis DNA PCR Not detected (Not Detecte) Deonna albicans (PCR) (Not Detect) Deonna auris (PCR) (Not Detect) C. glabrata (PCR) (Not Detect) C. krusei (PCR) (Not Detect) C. parapsilosis (PCR) (Not Detect) C. tropicalis (PCR) (Not Detect) Coronavirus OC43 (PCR) Not detected (Not Detect) Coronavirus HKU1 (PCR) Not detected (Not Detect) Coronavirus 229E (PCR) Not detected (Not Detect) SARS-CoV-2 (PCR) Not detected (Not Detecte) Coronavirus NL63 (PCR) Not detected (Not Detect) C. neoform/gattii (PCR) (Not Detect) Enterobacterales (PCR) (Not Detect) E. cloacae complex PCR (Not Detect) Enterococc faecalis PCR (Not Detect) Enterococc faecium PCR (Not Detect) E. coli (PCR) (Not Detect) H. influenzae (PCR) (Not Detect) Human Metapneumovir PCR Not detected (Not Detect) Influenza Type A (PCR) Not detected (Not Detect) Influenza Type B (PCR) Not detected (Not Detect) Klebsiella aerogenes (PCR) (Not Detect) Klebsiella oxytoca PCR (Not Detect) Klebsiella pneumoniae (Not Detect) List. monocytogenes PCR (Not Detect) M. pneumoniae (PCR) Not detected (Not Detect) N. meningitidis (PCR) (Not Detect) Parainfluenza 1 (PCR) Not detected (Not Detect) Parainfluenza 2 (PCR) Not detected (Not Detect) Parainfluenza 3 (PCR) Not detected (Not Detect) Parainfluenza 4 (PCR) Not detected (Not Detect) Proteus species (PCR) (Not Detect) RSV (PCR) Detected H (Not Detect) Entero/Rhino (PCR) Not detected (Not Detect) Salmonella spp. (PCR) (Not Detect) Serratia marcescens PCR (Not Detect) Staphylococcus sp PCR (Not Detect) Staph aureus (PCR) (Not Detect) mecA/C & MREJ Resist Gene (Not Detect) mecA/C-Methicil Resis Gene (Not Detect) mcr-1 Colistin Res Gene PCR (Not Detect) Staph epidermidis (PCR) (Not Detect) Staph lugdunensis PCR (Not Detect) S. maltophilia (PCR) (Not Detect) Streptococcus sp PCR (Not Detect) Group A Strep (PCR) (Not Detect) Strep agalactiae (PCR) (Not Detect) Strep pneumoniae (PCR) (Not Detect) P. aeruginosa (PCR) (Not Detect) [place]/B-Vanco Res Genes (Not Detect) blaIMP Car res Gene PCR (Not Detect) KPC-Carbap Res Gene PCR (Not Detect) blaNDM Car Res Gene PCR (Not Detect) OXA-48 Carbapenem Resis Gene (PCR) (Not Detect) blaVIM Car Res Gene PCR (Not Detect) CTX-M Gene Resistance (PCR) (Not Detect) 09/16/23 09/16/23 09/17/23 Range/Units 16:08 19:12 06:54 WBC (4.5-11.0) X10^3/uL RBC (4.0-5.2) X10^6/uL Hgb (12.0-16.0) g/dL Hct (36-46) % MCV (80-100) fL MCH (26-34) PG MCHC (30-36) % RDW (11.6-14.8) % Plt Count (150-400) X10^3/uL Neut % (Auto) (50-75) % Lymph % (Auto) (25-40) % [place] % (Auto) (3-14) % Eos % (Auto) (2-4) % Baso % (Auto) (0-2) % Neut # (Auto) (0550-0849) /uL Lymph # (Auto) (7517-0367) /uL [place] # (Auto) (0-900) /uL Eos # (Auto) (0-450) /uL Baso # (Auto) (0-100) /uL Sodium (137-145) mmol/L Potassium (3.4-5.1) mmol/L Chloride (98-107) mmol/L Carbon Dioxide (22-32) mmol/L BUN (7-17) mg/dL Creatinine (0.52-1.04) mg/dL Estimated GFR (>60) mL/min BUN/Creatinine Ratio (6-22) Glucose (80-110) mg/dL Lactate 1.9 (0.7-2.1) mmol/L Calcium (8.4-10.2) mg/dL Total Bilirubin (0.2-1.3) mg/dL AST (14-36) IU/L ALT (<35) IU/L Alkaline Phosphatase (38-126) U/L Total Creatine Kinase 180 H (30-135) U/L Troponin I 0.211 H* (0.01-0.034) ng/mL NT-Pro-B Natriuret Pep (<125) pg/mL Total Protein (6.3-8.2) g/dL Albumin (3.5-5.0) g/dL Globulin (1.7-4.1) g/dL Albumin/Globulin Ratio (1.0-2.8) Lipase (23-300) U/L Procalcitonin (<0.5) ng/mL Urine Color Urine Appearance Urine pH (4.5-8.0) Ur Specific [place] (1.000-1.035) Urine Protein (Negative) Urine Glucose (UA) (Negative) g/dL Urine Ketones (NEGATIVE) Urine Occult Blood (Negative) Urine Nitrate (Negative) Urine Bilirubin (NEGATIVE) Ur Bilirubin Confirm Urine Urobilinogen (0.2) E.U./dL Ur Leukocyte Esterase (NEGATIVE) Urine RBC (0-5/HPF) Urine WBC (0-5/HPF) Ur Squamous Epith Cells (0-5/HPF) Amorphous Sediment Urine Bacteria (None) Hyaline Casts (None) Granular Casts (None) Urine Mucus (Negative) Ur Culture Indicated? Vol Urine Centrifuged A.calcoaceticus-baumannii cmplx PCR Not detected (Not Detect) Chlamy pneumoniae PCR (Not Detect) Adenovirus (PCR) (Not Detect) Bacteroides fragilis Not detected (Not Detect) B.parapertussis DNA PCR (Not Detecte) Deonna albicans (PCR) Not detected (Not Detect) Deonna auris (PCR) Not detected (Not Detect) C. glabrata (PCR) Not detected (Not Detect) C. krusei (PCR) Not detected (Not Detect) C. parapsilosis (PCR) Not detected (Not Detect) C. tropicalis (PCR) Not detected (Not Detect) Coronavirus OC43 (PCR) (Not Detect) Coronavirus HKU1 (PCR) (Not Detect) Coronavirus 229E (PCR) (Not Detect) SARS-CoV-2 (PCR) (Not Detecte) Coronavirus NL63 (PCR) (Not Detect) C. neoform/gattii (PCR) Not detected (Not Detect) Enterobacterales (PCR) Not detected (Not Detect) E. cloacae complex PCR Not detected (Not Detect) Enterococc faecalis PCR Not detected (Not Detect) Enterococc faecium PCR Not detected (Not Detect) E. coli (PCR) Not detected (Not Detect) H. influenzae (PCR) Not detected (Not Detect) Human Metapneumovir PCR (Not Detect) Influenza Type A (PCR) (Not Detect) Influenza Type B (PCR) (Not Detect) Klebsiella aerogenes (PCR) Not detected (Not Detect) Klebsiella oxytoca PCR Not detected (Not Detect) Klebsiella pneumoniae Not detected (Not Detect) List. monocytogenes PCR Not detected (Not Detect) M. pneumoniae (PCR) (Not Detect) N. meningitidis (PCR) Not detected (Not Detect) Parainfluenza 1 (PCR) (Not Detect) Parainfluenza 2 (PCR) (Not Detect) Parainfluenza 3 (PCR) (Not Detect) Parainfluenza 4 (PCR) (Not Detect) Proteus species (PCR) Not detected (Not Detect) RSV (PCR) (Not Detect) Entero/Rhino (PCR) (Not Detect) Salmonella spp. (PCR) Not detected (Not Detect) Serratia marcescens PCR Not detected (Not Detect) Staphylococcus sp PCR Detected (Not Detect) Staph aureus (PCR) Detected (Not Detect) mecA/C & MREJ Resist Gene Not detected (Not Detect) mecA/C-Methicil Resis Gene Not applicable (Not Detect) mcr-1 Colistin Res Gene PCR Not applicable (Not Detect) Staph epidermidis (PCR) Not detected (Not Detect) Staph lugdunensis PCR Not detected (Not Detect) S. maltophilia (PCR) Not detected (Not Detect) Streptococcus sp PCR Not detected (Not Detect) Group A Strep (PCR) Not detected (Not Detect) Strep agalactiae (PCR) Not detected (Not Detect) Strep pneumoniae (PCR) Not detected (Not Detect) P. aeruginosa (PCR) Not detected (Not Detect) [place]/B-Vanco Res Genes Not applicable (Not Detect) blaIMP Car res Gene PCR Not applicable (Not Detect) KPC-Carbap Res Gene PCR Not applicable (Not Detect) blaNDM Car Res Gene PCR Not applicable (Not Detect) OXA-48 Carbapenem Resis Gene (PCR) Not applicable (Not Detect) blaVIM Car Res Gene PCR Not applicable (Not Detect) CTX-M Gene Resistance (PCR) Not applicable (Not Detect) MDM Narrative Medical decision making narrative: Patient arrives without any diagnosed medical problems or taking any medications most likely because she does not see a primary provider. Has had approximately 2 weeks of progressively worsening problems breathing. He was when her family saw her feet today which were discolored and the amount of secretions that she was having and the shortness of breath was what prompted them to bring her in. Has sinus tachycardia with frequent PVCs on her EKG. Initially lactate was elevated but this improved with treatment here in the ER. Patient clinically is fluid overloaded. Was given Lasix. She diuresed a small amount with an initial 40 mg but then had an episode of hypotension. She responded to a small bolus of fluids. I suspect that she is intravascularly dry however is having 3rd spacing. She was given a 2nd dose of Lasix. Has been able to maintain her blood pressure since then. Has remained tachycardic. Has required oxygen by 2 L nasal cannula to keep saturations greater than 90%. BNP elevated. Troponin elevated but it is unchanged with a 2 hour repeat. She was also RSV positive. Chest x-ray shows pneumonia. Given the circumstances of her presentation she was given antibiotics for this however unsure whether not this is bacterial versus viral. I discussed the case with Dr. Thomason hospitalist on-call who did a bedside echocardiogram who states that her estimated ejection fraction is quite low. Unable to obtain a formal echocardiogram. Given her nonischemic EKG and no chest pain will hold on heparin for now. I suspect that the elevated troponin is secondary to her CHF. Dr. Thomason consulted Dr. Perez client program manager on-call who recommended transfer to facility that has Cardiology capability. Multiple facilities for contacted without bed availability. I did discuss the case with client program manager on-call [facility] who accepted the patient for transfer however there was no bed availability. Care turned over to Dr. Fowler to continue to observe and follow-up until disposition can be met. Transfer to [facility] as above. Discharge Plan Departure Patient Disposition: [facility] Clinical Impression: CHF (congestive heart failure), Respiratory syncytial virus (RSV) Referrals: Miscellaneous,DoctorMD [Primary Care Provider] -
[2023-09-16] MEDS: FUROSEMIDE 40 MG/4 ML VIAL IV ×2 (11:24→13:46)
[2023-09-16 11:25] LABS: Add Manual Diff / Slide Review NO; Basophils Absolute Auto 100 /uL (0-100); Basophils Percent Auto 0.4 % (0-2); Eosinophils Absolute Auto 0 /uL (0-450); Hematocrit 45.3 % (36-46); Hemoglobin 14.2 g/dL (12.0-16.0); Lymphocytes Absolute Auto 1000 /uL (1100-4500); Lymphocytes Percent Auto 8.1 % (25-40); Mean Corpuscular HGB Conc 31.3 % (30-36); Mean Corpuscular Hemoglobin 27.3 PG (26-34); Mean Corpuscular Volume 87.1 fL (80-100); Monocytes Absolute Auto 700 /uL (0-900); Monocytes Percent Auto 5.9 % (3-14); Neutrophils Absolute Auto 10400 /uL (1500-7000); Neutrophils Percent Auto 85.6 % (50-75); Platelet Count 201 X10^3/uL (150-400); Red Blood Cell Count 5.21 X10^6/uL (4.0-5.2); Red Cell Distribution Width 16.6 % (11.6-14.8); White Blood Cell Count 12.1 X10^3/uL (4.5-11.0)
[2023-09-16 11:36] LABS: Albumin 3.3 g/dL (3.5-5.0); Albumin Globulin Ratio 0.8 (1.0-2.8); Alkaline Phosphatase 88 U/L (38-126); Aspartate Aminotransferase 60 IU/L (14-36); BUN Creatinine Ratio 39.5 (6-22); Bilirubin Total 2.5 mg/dL (0.2-1.3); Blood Urea Nitrogen 34 mg/dL (7-17); Calcium 8.8 mg/dL (8.4-10.2); Carbon Dioxide 22 mmol/L (22-32); Chloride 98 mmol/L (98-107); Creatine Kinase 335 U/L (30-135); Estimated Glomerular Filt Rate > 60 mL/min (>60); Globulin 4.2 g/dL (1.7-4.1); Glucose 85 mg/dL (80-110); HEMOLYSIS < 15 (0-50); Lipase 74 U/L (23-300); Potassium 4.7 mmol/L (3.4-5.1); Sodium 134 mmol/L (137-145); Total Protein 7.5 g/dL (6.3-8.2)
[2023-09-16 11:40] LABS: Lactate (Lactic Acid) 6.8 mmol/L (0.7-2.1)
[2023-09-16 11:42] LABS: Alanine Aminotransferase 46 IU/L (<35)
[2023-09-16 11:47] LABS: NT-proBNP (BNP-Adult 18+) 20400 pg/mL (<125)
[2023-09-16 11:48] LABS: Troponin I 0.218 ng/mL (0.01-0.034)
--- NOTE | 2023-09-16 11:49 | PC.NURSE ---
Pt came to the ED today because she has been increasingly SOB and weak. Pt's family member states that she has been getting increasingly weak over the last week and is unable to move around like she normally would. Pt transferred to stretcher with 2 person assist. Significant work of breathing noted on exertion and while at rest. Pt o2 sat 89% and pt placed on 2L NC. Pt o2 sat 95%. 4+ pitting edema noted bilaterally on lower extremities and significantly dusky and cyanotic and weeping. Skin around ankles has orange peel appearance and cool to touch. Bilateral pedal pulses on palpation weak. Pt unable to tolerate laying flat and course crackles auscultated bilaterally in lung lagos. Pt a&ox4. Pt given 40mg of IV lasix and verbal order from Dr Ray to place berumen catheter. Clear dark aleta urine draining into catheter bag. Pt groin, yara-area and pannus red, moist and raw and when pt turned to side black and yellow unstagable pressure ulcer on right buttock. Pt's generalized skin appearance is mottled and cyanotic. Pt overall demeanor anxious.
[2023-09-16 11:53] LABS: Procalcitonin 0.25 ng/mL (<0.5)
[2023-09-16] MEDS: cefTRIAXone 1,000 MG in SODIUM CHLORIDE 0.9% 100 ML 200 MG IV (12:10)
[2023-09-16] MEDS: ASPIRIN 81 MG CHEW TAB 324 MG PO (12:10)
[2023-09-16 12:22] LABS: Adenovirus Not Detected (Not Detect); B. parapertussis Not Detected (Not Detecte); Bordetella pertussis Not Detected (Not Detect); Chlamydophila pneumoniae Not Detected (Not Detect); Coronavirus 229E Not Detected (Not Detect); Coronavirus HKU1 Not Detected (Not Detect); Coronavirus NL 63 Not Detected (Not Detect); Coronavirus OC43 Not Detected (Not Detect); Human Metapneumovirus Not Detected (Not Detect); Human Rhinovirus/Enterovirus Not Detected (Not Detect); Influenza A Not Detected (Not Detect); Influenza B Not Detected (Not Detect); Mycoplasma pneumoniae Not Detected (Not Detect); Parainfluenza Virus 1 Not Detected (Not Detect); Parainfluenza Virus 2 Not Detected (Not Detect); Parainfluenza Virus 3 Not Detected (Not Detect); Parainfluenza Virus 4 Not Detected (Not Detect); Respiratory Syncytial Virus Detected (Not Detect); SARS- CoV-2 Not Detected (Not Detecte)
--- NOTE | 2023-09-16 12:23 | PC.NURSE ---
assisted MEDHAT Quinones to reposition pt using pillows. pt allowed to rest
[2023-09-16 12:24] LABS: Appearance Urine UA CLEAR; Bilirubin Urine UA 1+ (NEGATIVE); Color Urine UA YELLOW; Glucose Urine UA NEGATIVE (Negative); Ketones Urine UA NEGATIVE (NEGATIVE); Leukocyte Esterase Urine UA NEGATIVE (NEGATIVE); Nitrite Urine UA NEGATIVE (Negative); Occult Blood Urine UA 1+ (Negative); Protein Urine UA 1+ (Negative); Specific Gravity Urine UA >=1.030 (1.000-1.035)
[2023-09-16 12:25] LABS: pH Urine UA 5.5 (4.5-8.0)
[2023-09-16 12:30] LABS: Bacteria Urine Moderate (10-30); RBC Urine 1-5/HPF (0-5/HPF); Squamous Epithelial Cell Urine 10-30 /HPF (0-5/HPF); Urine Volume 10mL (spun); WBC Urine 5-10/HPF (0-5/HPF)
[2023-09-16 12:31] LABS: Amorphous Sediment Urine 2+; Culture Indicated Urine Specimen Cultured; Granular Casts Urine 1-5/LPF; Hyaline Casts Urine 1-5/LPF; Mucus Urine 1+ (Negative)
[2023-09-16] MEDS: AZITHROMYCIN 500 MG in DEXTROSE 5% IN WATER 250 ML 250 MG IV (12:56)
[2023-09-16 13:03] LABS: Reflexed Lactate in 2 Hours Y
[2023-09-16 13:39] LABS: Creatine Kinase 256 U/L (30-135); Lactate 2HR (Lactic Acid Rflx) 3.1 mmol/L (0.7-2.1)
[2023-09-16 13:53] LABS: Troponin I 0.202 ng/mL (0.01-0.034)
[2023-09-16] MEDS: SODIUM CHLORIDE 0.9% 500 ML IV (14:02)
--- NOTE | 2023-09-16 14:03 | PC.NURSE ---
Pt now hypotensive with bp of 92/51 and remains tachy with HR in 120s. Temp 99.5. Pt is responsive and answers all questions appropriately. Dr Ray notified and received order for 500mL NS bolus and confirmed order for additional dose of 40mg IV lasix.
--- NOTE | 2023-09-16 14:34 | PC.NURSE ---
pt remains a&ox4. BP increasing and now 101/59 after 500mL bolus. HR 107. Pt 2L NC and sating 95% without significant work of breathing. Pt states that she is very sleepy and just wants to take a nap without being bothered.
[2023-09-16] MEDS: SODIUM CHLORIDE 0.9% 1,000 ML 100 ML IV (14:48)
--- NOTE | 2023-09-16 16:06 | PM.CN ---
History of Present Illness Consult details Date Patient Seen: 09/16/23 Time Patient Seen: 16:06 Chief complaint: SOB/ sick T-7 Reason for consult: Hypoxic respiratory failure, heart failure Requesting provider: Mic Ray Narrative: This is a 63 year old female with no known PMH (has not seen a physician in many years) who presents with worsening shortness of breath. She, along with her Niece at bedside and her (Niece's) whom the patient lives with since a move from [place] a few years ago, reports it has been bad for the last 3-4 days she has been not coming out of her room, severely fatigued, and dyspnic with minimal exertion. A few days ago they noticed severe leg swelling, the patient also reports this as developing over the last week. She began feeling sick a few weeks ago with a cold consisting up cough, rhinorrhea, and congestion but denies fever or chills. She hasn't improved since then and as noted above acutely worsened a few days ago. She denies any palpitations or chest pain, but does endorse orthopnea over the past week. She is a prior smoker quit about 10 years ago but has >30 pack year history, denies significant EtOH use and denies illicit substances. In the emergency room, her UA was positive, and respiratory panel was positive for RSV. Initial vitals were notable for a mild tachycardia (sinus on EKG) with slight tachypnea and she was relatively normotensive. She was given 40 mg IV lasix with minimal output, then re-dosed a few hours later. After that she became borderline hypotensive. Labs were notable for troponin of 0.218 (improved to .202 on 2 hour repeat), [place] [address]. Tbili was 2.5 with mild transaminitits. 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 No ST or T wave changes were indicative of ischemia. I performed a bedside rapid echo myself, which showed severely reduced EF based on examination. I also performed a RUQ ultrasound which did not show any obvious signs of biliary obstruction. Evaluation with ultrasound was limited by patient's obesity somewhat. In the ER she was given 324 mg asa, 80 mg of IV lasix total with last dose ordered at 13:43. She was also given ceftriaxone and azithro for possible pneumonia. Lactate was initially 6.8 but improved to 3 on repeat. Given new diagnosis of acute systolic heart failure, I discussed with cardiology information systems security developer whom recommended transfer for further cardiac evaluation along with continued diuresis and medical management including goal directed therapy if able to be tolerated. Meds Home Medications and Allergies Allergies Allergy/AdvReac Type Severity Reaction Status Date / Time No Known Drug Allergies Allergy Verified 09/16/23 11:07 Review of Systems Review of Systems Narrative: All other systems reviewed with the patient and are negative unless otherwise stated. Exam Vital Signs (past 8 hours): - 09/16/23 11:07 09/16/23 11:15 09/16/23 11:15 Temperature 97.5 F L Pulse Rate 124 H 109 H Respiratory Rate 18 24 Blood Pressure 129/79 120/62 Pulse Oximetry 95 89 L Oxygen Delivery Method Room Air Room Air Oxygen Flow Rate 2 09/16/23 11:30 09/16/23 11:30 09/16/23 11:45 Temperature Pulse Rate 111 H 112 H Respiratory Rate 37 H Blood Pressure 151/65 H Pulse Oximetry 94 Oxygen Delivery Method Nasal Cannula Oxygen Flow Rate 2 09/16/23 11:46 09/16/23 11:46 09/16/23 12:00 Temperature Pulse Rate 111 H Respiratory Rate 36 H Blood Pressure 133/60 125/60 Pulse Oximetry 92 Oxygen Delivery Method Oxygen Flow Rate 09/16/23 12:00 09/16/23 12:15 09/16/23 12:16 Temperature Pulse Rate 106 H 110 H 111 H Respiratory Rate 32 H 34 H 33 H Blood Pressure Pulse Oximetry 90 L 92 93 Oxygen Delivery Method Oxygen Flow Rate 09/16/23 12:16 09/16/23 12:30 09/16/23 12:30 Temperature Pulse Rate 108 H Respiratory Rate 34 H Blood Pressure 133/77 127/69 Pulse Oximetry 92 Oxygen Delivery Method Oxygen Flow Rate 09/16/23 12:45 09/16/23 12:45 09/16/23 13:00 Temperature Pulse Rate 113 H 123 H Respiratory Rate 31 H 30 H Blood Pressure 122/65 Pulse Oximetry 92 92 Oxygen Delivery Method Nasal Cannula Oxygen Flow Rate 2 09/16/23 13:00 09/16/23 13:15 09/16/23 13:15 Temperature Pulse Rate 119 H Respiratory Rate 31 H Blood Pressure 145/63 H 122/56 L Pulse Oximetry 94 Oxygen Delivery Method Oxygen Flow Rate 09/16/23 13:30 09/16/23 13:31 09/16/23 13:31 Temperature Pulse Rate 120 H 113 H Respiratory Rate 27 H 39 H Blood Pressure 107/58 L Pulse Oximetry 93 94 Oxygen Delivery Method Oxygen Flow Rate 09/16/23 13:45 09/16/23 13:45 09/16/23 13:49 Temperature Pulse Rate 111 H Respiratory Rate 34 H Blood Pressure 92/51 L 104/59 L Pulse Oximetry 94 Oxygen Delivery Method Nasal Cannula Oxygen Flow Rate 2 09/16/23 13:49 09/16/23 14:00 09/16/23 14:00 Temperature Pulse Rate 113 H 110 H 114 H Respiratory Rate 27 H 29 H Blood Pressure 92/54 L Pulse Oximetry 93 93 Oxygen Delivery Method Oxygen Flow Rate 09/16/23 14:07 09/16/23 14:15 09/16/23 14:15 Temperature 99.5 F Pulse Rate 111 H Respiratory Rate 27 H Blood Pressure 90/55 L Pulse Oximetry 95 Oxygen Delivery Method Oxygen Flow Rate 09/16/23 14:20 09/16/23 14:25 09/16/23 14:30 Temperature Pulse Rate 107 H 105 H Respiratory Rate 27 H 27 H Blood Pressure 96/58 L Pulse Oximetry 96 95 Oxygen Delivery Method Nasal Cannula Oxygen Flow Rate 2 09/16/23 14:30 09/16/23 14:32 09/16/23 14:32 Temperature Pulse Rate 111 H 107 H Respiratory Rate 26 H 28 H Blood Pressure 101/59 L Pulse Oximetry 95 94 Oxygen Delivery Method Oxygen Flow Rate 09/16/23 14:33 09/16/23 14:33 09/16/23 14:34 Temperature Pulse Rate 107 H 114 H Respiratory Rate 24 24 Blood Pressure 104/57 L Pulse Oximetry 94 94 Oxygen Delivery Method Oxygen Flow Rate 09/16/23 14:34 09/16/23 14:35 09/16/23 14:40 Temperature Pulse Rate 108 H 102 H Respiratory Rate 30 H 26 H Blood Pressure 99/56 L Pulse Oximetry 94 96 Oxygen Delivery Method Oxygen Flow Rate 09/16/23 14:40 09/16/23 14:45 Temperature Pulse Rate 112 H Respiratory Rate 28 H Blood Pressure 103/56 L Pulse Oximetry 95 Oxygen Delivery Method Oxygen Flow Rate Oxygen Delivery Method Nasal Cannula Oxygen Flow Rate 2 Narrative Exam Narrative: gen: chronically ill appearing obese female, mildly short of breath with short sentences CV: tachycardic, regular rhythm, no murmurs or rubs Pulm: poor inspiratory effort, bibasilar crackles Abd: S NT ND Ext: 3+ pitting edema b/l LE, mild abrasions to bilateral calves, pink discolored toes bilaterally. Neuro: alert and oriented, no focal deficits. Objective ECG Impression: Sinus tachycarda with PVC and PAC LAFB prior inferior infarct As interpreted by me. Labs 09/16/23 11:10 09/16/23 11:10 Labs: Laboratory Results - last 24 hr 09/16/23 09/16/23 09/16/23 11:10 12:15 13:18 WBC 12.1 H RBC 5.21 H Hgb 14.2 Hct 45.3 MCV 87.1 MCH 27.3 MCHC 31.3 RDW 16.6 H Plt Count 201 Neut % (Auto) 85.6 H Lymph % (Auto) 8.1 L [place] % (Auto) 5.9 Eos % (Auto) 0.0 L Baso % (Auto) 0.4 Neut # (Auto) 00725 H Lymph # (Auto) 1000 L [place] # (Auto) 700 Eos # (Auto) 0 Baso # (Auto) 100 Sodium 134 L Potassium 4.7 Chloride 98 Carbon Dioxide 22 BUN 34 H Creatinine 0.86 Estimated GFR > 60 BUN/Creatinine Ratio 39.5 H Glucose 85 Lactate 6.8 H* 3.1 H Calcium 8.8 Total Bilirubin 2.5 H AST 60 H ALT 46 H Alkaline Phosphatase 88 Total Creatine Kinase 335 H 256 H Troponin I 0.218 H* 0.202 H* NT-Pro-B Natriuret Pep 62284 H Total Protein 7.5 Albumin 3.3 L Globulin 4.2 H Albumin/Globulin Ratio 0.8 L Lipase 74 Procalcitonin 0.25 Urine Color Yellow Urine Appearance Clear Urine pH 5.5 Ur Specific [place] >=1.030 H Urine Protein 1+ H Urine Glucose (UA) Negative Urine Ketones Negative Urine Occult Blood 1+ H Urine Nitrate Negative Urine Bilirubin 1+ H Ur Bilirubin Confirm Not Reportable Urine Urobilinogen 4.0 H Ur Leukocyte Esterase Negative Urine RBC 1-5/hpf Urine WBC 5-10/hpf H Ur Squamous Epith Cells 10-30 /hpf H Amorphous Sediment 2+ Urine Bacteria Moderate (10-30) H Hyaline Casts 1-5/lpf Granular Casts 1-5/lpf Urine Mucus 1+ H Ur Culture Indicated? Specimen cultured Vol Urine Centrifuged 10ml (spun) Chlamy pneumoniae PCR Not detected Adenovirus (PCR) Not detected B.parapertussis DNA PCR Not detected Coronavirus OC43 (PCR) Not detected Coronavirus HKU1 (PCR) Not detected Coronavirus 229E (PCR) Not detected SARS-CoV-2 (PCR) Not detected Coronavirus NL63 (PCR) Not detected Human Metapneumovir PCR Not detected Influenza Type A (PCR) Not detected Influenza Type B (PCR) Not detected M. pneumoniae (PCR) Not detected Parainfluenza 1 (PCR) Not detected Parainfluenza 2 (PCR) Not detected Parainfluenza 3 (PCR) Not detected Parainfluenza 4 (PCR) Not detected RSV (PCR) Detected H Entero/Rhino (PCR) Not detected PFSH Tobacco & Substance Use Smoking Status: Former smoker Tobacco: How many years used: 30 Assessment & Plan Assessment & Plan narrative: 63 year old female presenting with acute, likely systolic heart failure, recommend transfer to higher level facility for further cardiac evaluation and management. 1. Acute, likely systolic, heart failure - bedside ultrasound shows grossly reduced EF, formal TTE ordered. - discussed with Dr. Perez, cardiology, whom recommended transfer for further cardiac evaluation - after a few hours given 2 successive doses of lasix with hypotension, junior sales representative recommended furosemide infusion starting at 5 mg / hour to see how she tolerates diuresis initially. - with no chest pain, decreasing troponin likely due to demand. - continue telemetry monitoring. - initiate goal directed medical therapy as tolerated with beta judy, eva inhibition. - suspect hepatic congestion leading to elevated bilirubin, but recommend RUQ ultrasound. - check TSH, A1c, and lipid panel. 2. Myocardial injury - initial trop of 0.218, repeated at 2 hours and was 0.202. Likely due to demand. EKG shows likely prior infarct, no ST or T wave changes consistent with acute ischemia, and patient is without chest pain. 3. Acute respiratory failure with hypoxia with possible bacterial pneumonia. - likely due to heart failure, though with recent RSV and mild leukocytosis, along with CXR appearance cannot definitively rule out PNA. - can continue ceftriaxone and azithromycin q24 hours for possible PNA. - goal O2 90-96% while on supplemental therapy, wean as tolerated. 4.Congestive hepatopathy - continue diuresis as noted above - recommend RUQ ultrasound 5. Asymptomatic bacteruria - patient without urinary symptoms, UA is grossly positive but contaminated. Any infection will be treated with above antibiotics for PNA. 6. RSV infection - continue isolation precautions - supportive care recommended, goal O2 is >90%. Code: Full, surrogate is patient's Niece DVT: recommend Lovenox obesity dosing 40 mg BID Dispo: recommend transfer for further cardiology consultation and evaluation of acute systolic heart failure. I have utilized all available immediate resources to obtain, update, or review the patient's current medications. Discussed with patient's Niece for additional history. Discussed management with ER provider, and junior sales representative directly.
[2023-09-16 16:26] LABS: Lactate (Lactic Acid) 1.9 mmol/L (0.7-2.1)
--- NOTE | 2023-09-16 16:34 | PC.NURSE ---
Pt bp & hr remain improved. Bp 108/58 HR 104. Pt a&ox4 and answers all questions appropriately. Denies any sob or difficulty breathing at this time.
--- NOTE | 2023-09-16 17:58 | PC.NURSE ---
Pt tipped to left side and ankles floated with pillow. Draw sheets and blankets changed. 4+ pittng edema is still present bilaterally on pt's lower extremities.
--- NOTE | 2023-09-16 18:06 | PC.NURSE ---
Pt sitting up in bed and a&ox4. Given dinner tray from dietary dept. Denies sob or difficulty breathing. Remains on 2L NC and sating at 96%. Pt states that she feels much better than she did this morning. 875mL of clear aleta urine out.
--- NOTE | 2023-09-16 19:13 | PC.NURSE ---
Pt o2 sat repeatedly dipped down to 88% on 2L NC. O2 sat increased to 3L and now sating at 95%
[2023-09-16 19:37] LABS: Creatine Kinase 180 U/L (30-135)
--- NOTE | 2023-09-16 19:38 | PC.NURSE ---
Pt's feet are now pink with 3-4 second cap refill bilaterally. Bilateral pedal pulses palpated. Bilateral 4+ pitting edema still present.
[2023-09-16 19:52] LABS: Troponin I 0.211 ng/mL (0.01-0.034)
--- NOTE | 2023-09-16 20:19 | PC.NURSE ---
Pt bp dropped from 107/[address] Fowler notified. No new orders at this time.
--- NOTE | 2023-09-16 20:54 | PC.NURSE ---
Addendum entered by Stacie Ni CNA 09/16/23 21:01: Pt bp 80/[address] Fowler notified and at bedside. Original Note: Pt bp 90/[address] Fowler notified.
--- NOTE | 2023-09-16 21:24 | PC.NURSE ---
Per verbal instructions from Dr. Fowler. Ok to hold Levophed at this time. Start if MAP drops below 65.
--- NOTE | 2023-09-16 21:54 | PC.NURSE ---
Addendum entered by Tiffanie Corral R.N. 09/16/23 21:56: Printed copy from bus driver/monitor placed in chart Original Note: At approximately 21:49 pt had a 10 beat run of irregular heart rate: wide complex tachycardia
--- NOTE | 2023-09-16 23:23 | PC.NURSE ---
Called Jose Francisco per pt request to advise her that she has just left and is going to [facility] in [place] Room [address]. She states that she will call in morning for an update.
[2023-09-17 08:06] LABS: Acinetobacter calcoa-baumannii Not Detected (Not Detect); Bacteroides fragilis Not Detected (Not Detect); Candida albicans Not Detected (Not Detect); Candida auris Not Detected (Not Detect); Candida glabrata Not Detected (Not Detect); Candida krusei Not Detected (Not Detect); Candida parapsilosis Not Detected (Not Detect); Candida tropicalis Not Detected (Not Detect); Cryptococcus neoformans/gatti Not Detected (Not Detect); Enterobacter cloacae complex Not Detected (Not Detect); Enterobacterales Not Detected (Not Detect); Enterococcus faecalis Not Detected (Not Detect); Enterococcus faecium Not Detected (Not Detect); Haemophilus influenzae Not Detected (Not Detect); Klebsiella aerogenes Not Detected (Not Detect); Listeria monocytogenes Not Detected (Not Detect); Neisseria meningitidis Not Detected (Not Detect); Proteus species Not Detected (Not Detect); Pseudomonas aeruginosa Not Detected (Not Detect); Salmonella species Not Detected (Not Detect); Serratia marcescens Not Detected (Not Detect); Staphylococcus epidermidis Not Detected (Not Detect); Staphylococcus lugdunensis Not Detected (Not Detect); Staphylococcus species Detected (Not Detect); Stenotrophomonas maltophilia Not Detected (Not Detect); Streptococcus agalactiae (Gr B Not Detected (Not Detect); Streptococcus pneumonia Not Detected (Not Detect); Streptococcus pyogenes (Gr A) Not Detected (Not Detect); Streptococcus species Not Detected (Not Detect); mecA/C and MREJ (MRSA) Resista Not Detected (Not Detect)
--- NOTE | 2023-09-17 14:43 | PC.NURSE ---
lab called for 2nd blood culture: gram pos cocci.
== END 2023-09-16 23:24 | disposition short-term general hospital (02) ==
PROVIDERS: Emergency Medicine; Emergency Provider Emergency Medicine
DX: I50.9 Heart failure, unspecified (principal); B97.4 Respiratory syncytial virus as the cause of diseases classified elsewhere; Z20.822 Contact with and (suspected) exposure to COVID-19
CPT/HCPCS: 36415; 71045; 80053; 81001; 82550; 83605; 83690; 83880; 84145; 84484; 85025; 87040; 87077; 87086; 87147; 87154; 87186; 87633; 93005; 93010; 96361; 96365; 96367; 96375; 96376; 99285; J0696; J1940